=== PATIENT | male | born 1965 | race African-American/Black ===

== ENCOUNTER 2016-11-17 09:32 | Day surgery (SDC) | payer OTHER ==
[2016-11-17] MEDS ORDERED: LACTATED RINGERS 1,000 ML IV ONE (10:04)
[2016-11-17] MEDS ORDERED: fentaNYL 250 MCG/5 ML VIAL IVP ONE (11:55)
[2016-11-17] MEDS ORDERED: MIDAZOLAM 2 MG/2 ML VIAL IVP ONE (11:55)
== END 2016-11-17 09:33 | disposition home or self-care (01) ==
PROC: 0DBM8ZX Excision of Descending Colon, Via Natural or Artificial Opening Endoscopic, Diagnostic (ICD-10-PCS; 2016-11-17)
PROC: 0DBK8ZX Excision of Ascending Colon, Via Natural or Artificial Opening Endoscopic, Diagnostic (ICD-10-PCS; principal; 2016-11-17 10:45)
DX: Z12.11 Encounter for screening for malignant neoplasm of colon (principal); D12.4 Benign neoplasm of descending colon; D12.3 Benign neoplasm of transverse colon; K64.8 Other hemorrhoids; I10 Essential (primary) hypertension
CPT/HCPCS: 45380; J3010; J7120

== ENCOUNTER 2023-07-06 10:26 | Day surgery (SDC) | payer OTHER ==
[2023-07-06] MEDS ORDERED: LACTATED RINGERS 1,000 ML IV ONE ×2 (10:30→13:23)
--- NOTE | 2023-07-06 11:41 | ANESTHESIA ---
Pre-Anesthesia VS, & Labs - Diagnosis screening - Procedure colonoscopy Vital Signs: Temp Pulse Resp BP Pulse Ox O2 Flow Rate 36.0 C L 86 16 128/99 H 98 07/06/23 10:30 07/06/23 10:30 07/06/23 10:30 07/06/23 10:30 07/06/23 10:30 Height: 5 ft 8 in Weight (kg): 83.8 kg Body Mass Index: 28.0 BMI Classification: Overweight - NPO Other (prep last at 530am) Home Medications and Allergies Telmisartan [Micardis] 20 mg PO DAILY 11/17/16 Allergies/Adverse Reactions: Allergies Allergy/AdvReac Type Severity Reaction Status Date / Time No Known Drug Allergies Allergy Verified 11/17/16 10:09 Anes History & Medical History - Anesthetic History Anesthesia Complications: reports: No previous complications - Medical History Cardiovascular: reports: Hypertension Pulmonary: reports: None Gastrointestinal: reports: None Urinary: reports: None Musculoskeletal: reports: Chronic back pain Skin: reports: None Smoking Status: Former smoker - Surgical History General: reports: Colonoscopy Dermatologic: reports: Skin grafts Exam General: Alert, Oriented x3 Dental: WNL Mouth Opening: Greater than 4 Fingerbreadths Neck Mobility: Normal Mallampati classification: I Thyromental Distance: greater than 6 cm Respiratory: Lungs clear Cardiovascular: Regular rate, Normal S1, Normal S2 Plan Anesthesia Type: Total IV Consent for Procedure(s) Verified and Reviewed: Yes Code Status: Attempt Resuscitation ASA classification: 2-Mild systemic disease Is this case an emergency?: No
[2023-07-06] MEDS ORDERED: PROPOFOL 500 MG/50 ML 500 MG/50 ML VIAL ONE (12:21)
[2023-07-06] MEDS ORDERED: SIMETHICONE 40 MG/0.6 ML 15 ML BOTTLE PO ONE (13:09)
[2023-07-06 13:53] VITALS: BP 110/86; O2SAT 98
--- NOTE | 2023-07-06 13:58 | ANESTHESIA POST OP EVALUATION ---
Anesthesia Post Eval - Post Anesthesia Eval Vitals: Last Vital Signs Temp 36.0 C L 07/06/23 13:23 Pulse 65 07/06/23 13:51 Resp 16 07/06/23 13:51 BP 110/86 H 07/06/23 13:51 Pulse Ox 98 07/06/23 13:51 O2 Flow Rate CV Function Including HR & BP: Stable Pain Control: Satisfactory Nausea & Vomiting: Negative Mental Status: Baseline Respiratory Status: Airway Patent Hydration Status: Satisfactory Anesthesia Complications: None
== END 2023-07-06 10:27 | disposition home or self-care (01) ==
LOC: SDS 10:26
PROVIDERS: ATTEND Surgery
PROC: 0DBH8ZX Excision of Cecum, Via Natural or Artificial Opening Endoscopic, Diagnostic (ICD-10-PCS; principal; 2023-07-06 11:45)
DX: Z12.11 Encounter for screening for malignant neoplasm of colon (principal); D12.0 Benign neoplasm of cecum; I10 Essential (primary) hypertension
CPT/HCPCS: 45380; A9270; J7120